=== PATIENT | female | born 1995 | race Caucasian/White ===

== ENCOUNTER 2017-07-12 17:28 | Emergency (ER) | payer OTHER ==
[~2017-07-12] VITALS: Wt 59.0 kg
[2017-07-12] MEDS ORDERED: ALBUTEROL 0.083% (NEB) 2.5 MG/3 ML AMP HHN STA (18:15)
--- NOTE | 2017-07-12 18:15 | ERD ---
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 denies coughing up blood or phlegm, denies fever chill or night sweats, denies asthma. denies smoking, pt reports black sputum with clear saliva yesterday ROS All systems reviewed and are negative except as per history of present illness. Allergies Allergies: Coded Allergies: No Known Allergy (Unverified , 07/12/17) PMhx/Soc Medical and Surgical Hx: pt denies Medical Hx, pt denies Surgical Hx Hx Alcohol Use: No Hx Substance Use: No Hx Tobacco Use: No Smoking Status: Never smoker Physical Exam Vitals Vital Signs Date Time Temp Pulse Resp B/P Pulse Ox O2 Delivery O2 Flow Rate FiO2 07/12/17 18:43 75 16 100 21 07/12/17 17:30 99.4 82 16 132/72 98 vss triage notes reviewed Physical Exam Const: Nourished well-hydrated well-appearing no acute distress Head: Atraumatic Eyes: Normal Conjunctiva PERRLA, EOMI ENT: Lateral tympanic membranes are translucent, auditory canals are clear, nasal mucosa edematous, turbinates +2 with mucus noted, no crest or bleeding points on septum, pharynx is pink, uvula midline without shift, rises and falls with pronation, tongue midline, moist, Neck: Resp: Clear to auscultation bilaterally but diminished bases, no wheezing with forced expiration Cardio: S1-S2, no S3-S4 regular rate and rhythm, no murmurs Abd: Skin: Back: Ext: Neur: Awake and alert Psych: Normal Mood and Affect Results 24 hrs Laboratory Tests Test 07/12/17 19:09 Bedside Urine pH (LAB) 7.0 Bedside Urine Protein (LAB) Negative Bedside Urine Glucose (UA) Negative Bedside Urine Ketones (LAB) Negative Bedside Urine Blood Trace-lysed Bedside Urine Nitrite (LAB) Negative Bedside Urine Leukocyte Esterase (L 1+ Current Medications Medications (Trade) Dose Ordered Sig/Shalini Route PRN Reason Start Time Stop Time Status Last Admin Dose Admin Albuterol (Proventil 0.083% (Neb)) 2.5 mg ONCE STAT HHN 9/13/17 18:15 07/12/17 18:20 DC 07/12/17 18:43 Positive for leukocytosis topic hematuria, nitrates negative gains are suggestive of urinary tract infection Procedures/MDM This 22-year-old female presents to emergency department for evaluation of "not being able to take a deep breath". Patient reports that she needs to consciously take deep breaths. Patient reports symptoms started approximately 3 days ago. She denies any history of asthma, she denies any history of night sweats, fevers, hemoptysis. Patient reports yesterday she coughed up some dark sputum with clear saliva. 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 Patient denies any history of allergic rhinitis, denies headache rhinorrhea, reports postnasal drip. Physical exam findings and history support an allergic rhinitis/allergic to it asthma variant. Incidental finding of urinary tract infection on urinalysis patient with Macrobid 1 tab p.o. twice daily 7 days. Patient treated with albuterol HFA, chest x-ray, chest x-ray findings unremarkable for consolidation, plan to discharge patient home with Claritin 10 mg daily, phonates 2 squirts each nostril once a day, and albuterol MDI 2 puffs every 4 hours as needed shortness of breath, chest tightness, "feeling like you cannot take a deep breath". Follow-up with primary care physician for further treatment and evaluation. Patient is stable with no new complaints during ER course, clinically there is no current evidence to suggest tuberculosis, pneumonia, asthmatic pulmonary embolism or any other emergent condition appearing to require further evaluation or hospitalization. I feel the patient is stable for discharge at this time. I have discussed results, examination findings, the treatment plan with the patient and family present prior to discharge. Indications for emergent reevaluation, side effects of medication were also discussed. All questions were answered. Patient verbalizes understanding and agrees with plan of care. Departure Diagnosis: Primary Impression: Allergic bronchitis Asthma severity: unspecified severity Asthma complication type: uncomplicated Qualified Code: J45.909 - Bronchitis, allergic, unspecified asthma severity, uncomplicated Additional Impressions: Allergic rhinitis Chronicity: unspecified Allergic rhinitis trigger: other Allergic rhinitis seasonality: unspecified seasonality Qualified Code: J30.89 - Allergic rhinitis due to other allergic trigger, unspecified chronicity, unspecified seasonality UTI (urinary tract infection) Urinary tract infection type: site unspecified Hematuria presence: with hematuria Qualified Code: N39.0 - Urinary tract infection with hematuria, site unspecified Condition: Good Patient Instructions: Allergic Rhinitis, Bronchitis, No Antibiotic (Adult) Referrals: [facility] Additional Instructions: Thank you for for coming to [facility] for your care today. Please ask your nurse or provider if you have questions about your care today and do not leave until all your questions have been answered. Please use any medications given as directed and follow-up with your doctor (or the doctor you were referred to) in the next 2-3 days. If you do not have a primary care doctor you [place] [facility] [place] You may also use motrin and tylenol as needed for fever and/or pain unless instructed otherwise by your provider or nurse. Indications for more urgent follow-up have been discussed, but you may return to the Emergency Department at ANY time for any worrisome or worsening symptoms. If you have abdominal pain, please know that no test or exam you received is perfect and you should follow up within 8 hours for continued pain. If you had any imaging studies today, such as an X-Ray or CT Scan, these studies will be reviewed later by a radiologist. You will be called if there are important findings that were not identified today, so make sure the contact information you provided at registration is correct. If you received any narcotic pain control medicine today, such as Vicodin, Morphine or Dilaudid, your coordination and judgment may be affected for a number of hours. Please do not drive or operate heavy machinery, and you may want someone to assist you at home. If you were given a prescription for narcotic medication, be aware that it is very addictive- use sparingly and only if necessary. BRAD LUCAS Jul 12, 2017 18:15
[2017-07-12 19:02] LABS: URINE BLOOD (Dip) POC Trace-lysed (NEGATIVE)
--- NOTE | 2017-07-12 19:16 | RADRPT ---
PROCEDURE: XR Chest. CLINICAL INDICATION: Shortness of breath. TECHNIQUE: Two views. Frontal and lateral. COMPARISON: No prior study is available for comparison. FINDINGS: The lungs are clear. The heart size is normal. There is no pleural effusion. There is no pneumothorax. IMPRESSION: 1. Normal chest radiograph. RPTAT: QQ .Alfonso Brary MD, MD Date Time Electronically viewed and signed by .Alfonso Barry MD, MD on 07/12/2017 19:16 .R/
[2017-07-12] MEDS ORDERED: ALBU8.5H3 INH (19:46)
[2017-07-12] MEDS ORDERED: NITR-58 PO (19:46)
[2017-07-12] MEDS ORDERED: FLUT9.9S NASAL (19:47)
[2017-07-12] MEDS ORDERED: LORA10CA PO (19:47)
[2017-07-12 20:00] VITALS: PULSE 76
== END 2017-07-12 19:45 | disposition home or self-care (01) ==
LOC: FTE 17:28
DX: J30.89 Other allergic rhinitis (principal); N39.0 Urinary tract infection, site not specified
CPT/HCPCS: 71020; 81003; 94664; Z7502; Z7610

== ENCOUNTER 2019-06-11 18:10 | Emergency (ER) | payer OTHER ==
[~2019-06-11] VITALS: Ht 165.1 cm; Wt 66.2 kg
[~2019-06-11 18:10] MED LIST: ALBU8.5H8 INH; FLUT9.9S NASAL; LORA10CA PO; NITR-58 PO
[2019-06-11 18:16] VITALS: Ht 165.1 cm; Wt 66.2 kg
[2019-06-11 20:24] VITALS: BP 129/83; PULSE 86; RESP 18
== END 2019-06-11 20:24 | disposition home or self-care (01) ==
LOC: FTE 18:10
DX: O20.9 Hemorrhage in early pregnancy, unspecified (principal); R10.2 Pelvic and perineal pain; Z3A.10 10 weeks gestation of pregnancy
CPT/HCPCS: 36415; 76801; 81001; 84702; 85025; 86900; 86901

== ENCOUNTER 2019-07-14 07:22 | Emergency (ER) | payer OTHER ==
[~2019-07-14] VITALS: Wt 68.8 kg
[~2019-07-14 07:22] MED LIST changes: +ACET500C5 PO; +PREN1TAB13 PO
[2019-07-14 07:24] VITALS: BP 129/69; PULSE 88; RESP 20
== END 2019-07-14 08:35 | disposition home or self-care (01) ==
LOC: FTE 07:22
DX: O26.892 Other specified pregnancy related conditions, second trimester (principal); R10.2 Pelvic and perineal pain; Z3A.15 15 weeks gestation of pregnancy
CPT/HCPCS: 36415; 76805; 80053; 81001; 83690; 85025; 87086; Z7502